=== PATIENT | female | born 1995 | race Caucasian/White ===

== ENCOUNTER 2016-08-23 06:50 | Inpatient (IN) | payer OTHER ==
[2016-08-23] MEDS ORDERED: ELECTROLYTE-148 SOLN 1,000 ML IV SCH ×2 (07:48→09:00)
[2016-08-23 08:07] LABS: BASOPHIL 0.5 % (0-2.0); EOSINOPHIL 1.1 % (0-4.5); MCH 29.9 pg (25.7-33.7); MCHC 33.4 g/dl (32.0-36.0); MEAN CELL VOLUME 89.5 fl (80-96); MEAN PLT VOLUME 9.4 fl (7.5-11.1); NEUTROPHILS 63.3 % (42.8-82.8); PLATELET COUNT 154 K/MM3 (134-434); RDW 13.4 % (11.6-15.6); WHITE BLOOD COUNT 10.2 K/mm3 (4.0-10.0)
[2016-08-23 08:20] LABS: INR 0.9 (0.82-1.09); PROTHROMBIN TIME (PATIENT) 9.9 SEC (9.98-11.88)
[2016-08-23 08:23] LABS: ACTIVATED PTT 24.4 SECONDS (26.9-34.4)
[2016-08-23 08:28] LABS: ANION GAP 9 (8-16); CALCIUM 8.5 mg/dL (8.5-10.1); CO2 24 mmol/L (21-32); CREATININE 0.5 mg/dL (0.55-1.02); GLUCOSE,RANDOM 134 mg/dL (74-106)
[2016-08-23] MEDS ORDERED: FENTANYL/BUPIVACAINE/NS/PF - PCEA - 50 ML DISP.SYRIN EP SCH (09:00)
[2016-08-23] MEDS ORDERED: OXYTOCIN 15 UNITS/ LR 250 ML 250 ML IVPB SCH (09:00)
--- NOTE | 2016-08-23 09:03 | HP ---
Admitting History and Physical - Admission Chief Complaint: labor pains History of Present Illness: 20 y/o at 38 plus admitted for labor pains, now arom and light meconium. fht tracing reactive, gbs neg, hiv neg, rpr neg. 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: No: Alzheimer's, CVA, Dementia, Migraine, Multiple Sclerosis, Peripheral Neuropathy, Parkinson's, Seizure, Syncope, TIA, Vertigo, Other Cardiovascular: No: AFIB, Aneurysm, Aortic Insufficiency, Aortic Stenosis, CAD, CHF, Deep Vein Thrombosis, HTN, Hyperlipdemia, SC, Mitral Insufficiency, Mitral Stenosis, Murmur, Pulmonary Hypertension, Other Pulmonary: No: Asthma, Bronchitis, Cancer, COPD, O2 Dependent, Pneumonia, Previously Intubated, Pulmonary Embolus, Pulmonary Fibrosis, Sleep Apnea, Other Gastrointestinal: No: Ascites, Cancer, Constipation, Crohn's Disease, Diverticulitis, Diverticulosis, Esophageal Varices, Gastritis, GERD, GI Bleed, Hemorrhoids, Hiatal Hernia, Inflamatory Bowel Disease, Irritable Bowel Disease, Pancreatitis, Peptic Ulcer Disease, Ulcerative Colitis, Other Hepatobiliary: No: Cirrhosis, Cholelithiasis, Cholecystitis, Choledocholithiasis , Hepatitis A, Hepatitis B, Hepatitis C, Other Renal/: No: Renal Failure, Renal Inusuff, BPH, Cancer, Hematuria, Hemodialysis , Neurogenic Bladder, Renal Calculi, UTI, Other Reproductive: No: Ectopic , Endometriosis, Fibroids, PID, Polycystic Ovary Syndrome, Postmenopausal, Other ...LMP: 10/12/15 Heme/Onc: No: Anemia, B12 Deficiency, Bleeding Disorder, Cancer, Current Chemotherapy, Current Radiation Therapy, Hemochromatosis, Hypercoaguable State, Myeloproliferative Synd, Sickle Cell Disease, Sickle Cell Trait, Thrombocytopenia, Other Infectious Disease: No: AIDS, C-Diff, Herpes Zoster, HIV, MRSA, STD's, Tuberculosis, VREF, Other Psych: No: Addictions, Anxiety, Bipolar, Depression, Panic, Psychosis, Schizophrenia, Other Musculoskeletal: No: Bursitis, Chronic low back pain, Hemiparesis, Hemiplegia, Osteoarthritis, Paraplegia, Other Rheumatology: No: Fibromyalgia, Gout, Lupus, Rheumatoid Arthritis, Sarcoidosis, Vasculitis, Other ENT: No: Allergic Rhinitis, Sinusitis, Other Dermatology: No: Basal Cell, Cellulitis, Eczema, Melanoma, Psoriasis, Squamous Cell, Other - Past Surgical History Past Surgical History: No: None, AAA Repair, AICD, Amputation, Appendectomy, Arthrosocopy, AV Fistula/Graft, Bariatric Surgery, Breast Biopsy, Bypass, CABG, Carotid Endarterectomy, Cataract Removal, Cholecystectomy, Colectomy, Colonoscopy, Colostomy, Craniotomy, , Cystectomy, Hernia Repair, Hysterectomy, Ileal Conduit, Ileosotomy, Joint Replacement, Kidney Transplant, Laminectomy, Liver Transplant, Mastectomy, Nephrectomy, Oopherectomy, Orchiectomy, Permanent Pacemaker, Prostatectomy, Splenectomy, Stent, Thoracotomy , TURP, Tonsillectomy, Tubal Ligation, Upper Endoscopy, Valve Replacement, Vasectomy, Vein Stripping/Ligation - Advance Directives Advance Directives: No: Living Will, Health Care Proxy, DNR, Organ Donor, Tissue Donor, MOLST - Smoking History Smoking history: Never smoked Have you smoked in the past 12 months: No - Alcohol/Substance Use Hx Alcohol Use: No History of Substance Use: denies: None, Cocaine, Heroin, Marijuana, Prescription , Tranquilizers - Social History Usual Living Arrangement: No: Alone, With Spouse, With Parent, With Significant Other, With Child, Assisted Living, [facility], Other Home Medications - Allergies Allergies/Adverse Reactions: Allergies Allergy/AdvReac Type Severity Reaction Status Date / Time No Known Allergies Allergy Verified 04/29/16 16:21 - Home Medications Home Medications: Ambulatory Orders Vit/Iron Fumarate/FA [ Tablet] 1 tab PO DAILY 04/29/16 Review of Systems - Review of Systems Constitutional: reports: No Symptoms Eyes: reports: No Symptoms HENT: reports: No Symptoms Neck: reports: No Symptoms Cardiovascular: reports: No Symptoms Respiratory: reports: No Symptoms Gastrointestinal: reports: No Symptoms Genitourinary: reports: No Symptoms Breasts: reports: No Symptoms Reported Musculoskeletal: reports: No Symptoms Integumentary: reports: No Symptoms Neurological: reports: No Symptoms Endocrine: reports: No Symptoms Hematology/Lymphatic: reports: No Symptoms Physical Examination Vital Signs: Vital Signs Temperature 97.8 F 08/23/16 08:00 Pulse Rate 94 H 08/23/16 08:00 Respiratory Rate 19 08/23/16 08:00 Blood Pressure 120/75 08/23/16 08:00 O2 Sat by Pulse Oximetry (%) Constitutional: Yes: Well Nourished Eyes: Yes: WNL HENT: Yes: WNL Neck: Yes: WNL Cardiovascular: Yes: WNL Respiratory: Yes: WNL Gastrointestinal: Yes: WNL ...Rectal Exam: Yes: WNL Renal/: Yes: WNL Breast(s): Yes: WNL Musculoskeletal: Yes: WNL Labs: CBC, BMP 08/23/16 07:50 08/23/16 07:50 Assessment/Plan as above admit labs expect
[2016-08-23 09:26] VITALS: BMI 25.8
--- NOTE | 2016-08-23 11:02 | PN ---
Ante-Partal Exam - Subjective Vital Signs: Vital Signs Temperature 97.8 F 08/23/16 10:00 Pulse Rate 74 08/23/16 10:15 Respiratory Rate 18 08/23/16 10:15 Blood Pressure 100/59 08/23/16 10:15 O2 Sat by Pulse Oximetry (%) 96 08/23/16 10:15 - Exam during Labor Heart Rate: 150 Category: I Monitor Accelerations: Present Monitor Decelerations: None Exam: Vaginal Dilatation (cm): 8 Effacement (%): 100 Amniotic Membrane Status: Ruptured Nitrazine Test: Positive Amniotic Fluid: Meconium Stained Meconium Staining: Light Presentation: Vertex Station: 0 - Assessment/Plan Assessment/Plan: as above contine care expect nvsd
--- NOTE | 2016-08-23 11:59 | PN ---
Ante-Partal Exam - Subjective Vital Signs: Vital Signs Temperature 98.1 F 08/23/16 11:00 Pulse Rate 69 08/23/16 10:45 Respiratory Rate 18 08/23/16 10:45 Blood Pressure 115/70 08/23/16 10:45 O2 Sat by Pulse Oximetry (%) 97 08/23/16 10:45 - Contractions Contractions: Yes Regularity: Regular Intensity: Mild/Mod Monitor Mode: External - Exam during Labor Heart Rate: 150 Variability: Minimal Category: I Monitor Accelerations: Present Monitor Decelerations: None Exam: Vaginal Dilatation (cm): 10 Effacement (%): 100 Amniotic Membrane Status: Ruptured Nitrazine Test: Positive Amniotic Fluid: Meconium Stained Meconium Staining: Light Presentation: Vertex Station: 0 - Assessment/Plan Assessment/Plan: as above continue care expect
--- NOTE | 2016-08-23 13:40 | PN ---
Ante-Partal Exam - Subjective Vital Signs: Vital Signs Temperature 98.4 F 08/23/16 13:00 Pulse Rate 76 08/23/16 11:45 Respiratory Rate 18 08/23/16 11:45 Blood Pressure 112/65 08/23/16 11:45 O2 Sat by Pulse Oximetry (%) 96 08/23/16 11:45 - Contractions Contractions: Yes Regularity: Regular Intensity: Moderate Monitor Mode: External - Exam during Labor Heart Rate: 150 Category: I Monitor Accelerations: Present Monitor Decelerations: None Exam: Vaginal Dilatation (cm): 10 Effacement (%): 100 Amniotic Membrane Status: Ruptured Nitrazine Test: Positive Amniotic Fluid: Clear Presentation: Vertex Station: 0 - Assessment/Plan Assessment/Plan: as above expect
[2016-08-23] MEDS ORDERED: WITCH HAZEL 50% (TUCKS) 40 PAD/JAR PAD TP PRN (14:54)
[2016-08-23] MEDS ORDERED: BENZOCAINE 28 GM HEMORRHOIDAL OINTMENT TP PRN (14:54)
[2016-08-23] MEDS ORDERED: METHYLERGONOVINE MALEATE 0.2 MG/1 ML AMP IM PRN (14:54)
[2016-08-23] MEDS ORDERED: BENZOCAINE 20% 57 GM BOTTLE TP PRN (14:54)
[2016-08-23] MEDS ORDERED: BISACODYL 10 MG SUPP.RECT RC PRN (14:54)
--- NOTE | 2016-08-23 14:57 | PN ---
Delivery - Delivery Type of Anesthesia: Local, Epidural Episiotomy/Laceration: Midline EBL (cc): 300 Delivery, Single - Feeding Plan Initial Plan: Elected not to breastfeed exclusively throughout hospitalization
[2016-08-23] MEDS ORDERED: OXYTOCIN 20 UNITS in 0.9% NS 1,000 ML IV SCH (15:00)
[2016-08-23] MEDS ORDERED: OXYCODONE/APAP 5/325MG COMBO TABLET PO ONE (15:00)
[2016-08-23] MEDS ORDERED: oxyCODONE HCL 5 MG TABLET PO ONE (15:15)
[2016-08-23] MEDS: IBUPROFEN 600 MG TABLET (FP) PO PRN ×2 (15:15→23:00)
[2016-08-23] MEDS ORDERED: ACETAMINOPHEN 325 MG TABLET (FP) PO ONE (15:15)
[2016-08-23] MEDS: ACETAMINOPHEN 325 MG TABLET (FP) PO PRN (22:59)
[2016-08-24 09:29] LABS: BASOPHIL 0.3 % (0-2.0); EOSINOPHIL 0.6 % (0-4.5); MCH 29.7 pg (25.7-33.7); MEAN PLT VOLUME 10.1 fl (7.5-11.1); NEUTROPHILS 76.3 % (42.8-82.8); PLATELET COUNT 160 K/MM3 (134-434); RDW 13.8 % (11.6-15.6); WHITE BLOOD COUNT 16.7 K/mm3 (4.0-10.0)
[2016-08-24] MEDS: ACETAMINOPHEN 325 MG TABLET (FP) PO PRN ×2 (10:20→21:59)
[2016-08-24] MEDS: IBUPROFEN 600 MG TABLET (FP) PO PRN ×2 (10:20→22:00)
[2016-08-24] MEDS ORDERED: SENNOSIDES/DOCUSATE COMBO (SENNA PLUS) TABLET (UD) PO PRN (22:00)
--- NOTE | 2016-08-24 22:54 | PN ---
Post Progress Note Post Day: 1 Type of Delivery: Vital Signs: Vital Signs Temperature 98.3 F 08/24/16 22:00 Pulse Rate 98 H 08/24/16 22:00 Respiratory Rate 20 08/24/16 22:00 Blood Pressure 118/60 08/24/16 22:00 O2 Sat by Pulse Oximetry (%) 96 08/23/16 15:15 Breast Exam: Yes: Soft Uterus: Yes: Fundus Firm Abdomen/GI: Yes: Abdomen soft Lochia: Yes: Rubra Lochia, amount: Small Extremities: Yes: Calves non-tender Perineum: Yes: Intact Activity: Ambulating - Labs Labs: CBC WBC 16.7 K/mm3 (4.0-10.0) H D 08/24/16 07:35 RBC 3.64 M/mm3 (3.60-5.2) 08/24/16 07:35 Hgb 10.8 GM/dL (10.7-15.3) 08/24/16 07:35 Hct 32.8 % (32.4-45.2) 08/24/16 07:35 MCV 90.0 fl (80-96) 08/24/16 07:35 MCHC 33.0 g/dl (32.0-36.0) 08/24/16 07:35 RDW 13.8 % (11.6-15.6) 08/24/16 07:35 Plt Count 160 K/MM3 (134-434) 08/24/16 07:35 MPV 10.1 fl (7.5-11.1) 08/24/16 07:35 Neutrophils % 76.3 % (42.8-82.8) D 08/24/16 07:35 Lymphocytes % 17.8 % (8-40) D 08/24/16 07:35 Monocytes % 5.0 % (3.8-10.2) 08/24/16 07:35 Eosinophils % 0.6 % (0-4.5) 08/24/16 07:35 Basophils % 0.3 % (0-2.0) 08/24/16 07:35 Assessment/Plan as above oob reg diet
[2016-08-25 09:28] VITALS: BP 114/61; PULSE 93; TEMP 98.8
== END 2016-08-25 13:00 | disposition home or self-care (01) | DRG 560 ==
LOC: JDEL 06:50 → JLDR 07:40 → J3W 16:40
PROVIDERS: ADMIT Obstetrics & Gynecology; ATTEND Obstetrics & Gynecology
PROC: 10E0XZZ Delivery of Products of Conception, External Approach (ICD-10-PCS; principal; 2016-08-23)
PROC: 0W8NXZZ Division of Female Perineum, External Approach (ICD-10-PCS; 2016-08-23)
DX: O48.0 Post-term pregnancy (principal); Z3A.40 40 weeks gestation of pregnancy; Z37.0 Single live birth
CPT/HCPCS: 36415; 59409; 80048; 85025; 85610; 85730; 86593; 86850; 86900; 86901

== ENCOUNTER 2017-07-12 17:01 | Emergency (ER) | payer OTHER ==
[2017-07-12 17:08] VITALS: BP 122/62; PULSE 118; TEMP 99.3; BMI 24.2
[2017-07-12] MEDS ORDERED: ALBUTEROL SO4 2.5/IPRATROPIUM 0.5 INH SOL 3 ML VIAL.NEB. NEB ONE ×3 (17:35→18:08)
[2017-07-12] MEDS ORDERED: IBUPROFEN 400 MG TABLET (FP) PO ONE ×2 (17:35→17:37)
--- NOTE | 2017-07-12 17:35 | PDOC ---
History of Present Illness - General Chief Complaint: Respiratory Stated Complaint: CHEST PAIN Time Seen by Provider: 07/12/17 17:25 History Source: Patient Exam Limitations: No Limitations - History of Present Illness Initial Comments: 07/12/17 17:37 came for evaluation of chest pain that started this AM . States had started coughing last PM with some yellow phlegm Timing/Duration: reports: just prior to arrival Severity: reports: mild Associated Symptoms: reports: denies symptoms, cough, muscle aches, nasal congestion. denies: facial pain Past History - Travel Traveled outside of the country in the last 30 days: No Close contact w/someone who was outside of country & ill: No - Past Medical History Allergies/Adverse Reactions: Allergies Allergy/AdvReac Type Severity Reaction Status Date / Time No Known Allergies Allergy Verified 07/12/17 17:03 Home Medications: Ambulatory Orders Albuterol 0.083% Nebulizer Sivan [Ventolin 0.083% Nebulizer Soln -] 1 neb NEB Q4H PRN #30 vial 07/12/17 Sulfamethoxazole/Trimethoprim [Bactrim *Ds*] 1 each PO BID #14 tablet 07/12/17 predniSONE [Deltasone -] 20 mg PO BID #8 tablet 07/12/17 Anemia: Yes Asthma: No Cancer: No Cardiac Disorders: No COPD: No Diabetes: No HTN: No Seizures: No Thyroid Disease: No - Surgical History Abdominal Surgery: No Cardiac Surgery: No Cholecystectomy: No - Reproductive History (#): 1 Para: 1 Cervical CA: No Dysfunctional Uterine Bleeding: No Ectopic : No Endometrial CA: No Polycystic Ovaries: No Tubal Ligation: No Spontaneous : 0 Uterine Fibroids: No - Immunization History Immunization Up to Date: Yes - Suicide/Smoking/Psychosocial Hx Smoking History: Never smoked Have you smoked in the past 12 months: No Hx Alcohol Use: No Drug/Substance Use Hx: No Substance Use Type: None Hx Substance Use Treatment: No Review of Systems - Review of Systems Able to Perform ROS?: Yes Is the patient limited [place] proficient: Yes Constitutional: Yes: Symptoms Reported, See HPI, Malaise. No: Fever, Loss of Appetite HEENTM: Yes: See HPI. No: Symptoms Reported, Nose Congestion Respiratory: Yes: Symptoms reported, See HPI, Cough (with pleuritic chestpain ) . No: Wheezing Integumentary: Yes: Symptoms Reported Neurological: Yes: Symptoms reported All Other Systems: Reviewed and Negative *Physical Exam - Vital Signs Last Vital Signs Temp Pulse Resp BP Pulse Ox 99.3 F 118 H 17 122/62 100 07/12/17 17:04 07/12/17 17:04 07/12/17 17:04 07/12/17 17:04 07/12/17 17:04 - Physical Exam General Appearance: Yes: Nourished, Appropriately Dressed. No: Apparent Distress, Mild Distress HEENT: positive: CJ, Normal ENT Inspection, Normal Voice, TMs Normal, Pharynx Normal Neck: positive: Supple. negative: Tender, Lymphadenopathy (R), Lymphadenopathy (L) Respiratory/Chest: positive: Chest Tender, Lungs Clear, Normal Breath Sounds, Wheezing (diminished breath sounds bilaterally, states feels tight and difficult to take deep inspiratory effort due to pain.) Gastrointestinal/Abdominal: positive: Soft Extremity: positive: Normal Capillary Refill, Normal Inspection, Normal Range of Motion Integumentary: positive: Normal Color Neurologic: positive: esthetician/spa coordinator II-XII NML intact, Fully Oriented, Alert, Normal Mood/ Affect, Normal Response, Motor Strength 5/5 Heart Score/ECG Review - ECG Intrepretation Rhythm: Regular Rhythm (tachycardic) - ECG Impressions Normal ECG: Yes Non-specific ST Elevation: No Ischemic Changes: No Progress Note - Progress Note Progress Note: Upper respiratory infection, will treat with NSAIDS, Albuterol Nebs and prednisone *DC/Admit/Observation/Transfer Diagnosis at time of Disposition: Viral upper respiratory illness Allergic rhinitis Qualifiers: Allergic rhinitis trigger: pollen Allergic rhinitis seasonality: seasonal Qualified Code(s): J30.1 - Allergic rhinitis due to pollen - Discharge Dispostion Disposition: HOME Condition at time of disposition: Stable Decision to Admit order: No - Referrals - Patient Instructions Printed Discharge Instructions: DI for Viral Upper Respiratory Infection -- Adult Additional Instructions: Rest, drink lots of fluids: Teas, water, soups, Pedialyte Saltwater gargles Steamy showers/seem to face break up mucus Avoid contact with others until fevers and cough resolved Lots of handwashing and good hygiene Continue [id number] medications for symptomatic relief Tylenol or Motrin for fever and pain Continue albuterol nebulizers every 4-6 hours for the next 2 days then as needed for continued cough Prednisone as directed until completed Followup with private physician in one to 2 days Return to emergency department / pediatric hospital for worsened symptoms, fevers, dehydration - Post Discharge Activity Forms/Work/School Notes: Back to Work
[2017-07-12] MEDS ORDERED: predniSONE 20 MG TABLET (UD) PO ONE (18:10)
[2017-07-12] MEDS ORDERED: predniSONE 20 MG TABLET (UD) ONE (18:13)
--- NOTE | 2017-07-13 10:57 | EKG ---
Test Reason : Blood Pressure : / mmHG Vent. Rate : 115 BPM Atrial Rate : 115 BPM P-R Int : 154 ms QRS Dur : 076 ms QT Int : 324 ms P-R-T Axes : 070 057 039 degrees QTc Int : 448 ms SINUS TACHYCARDIA POSSIBLE LEFT ATRIAL ENLARGEMENT BORDERLINE ECG NO PREVIOUS ECGS AVAILABLE Confirmed by LESLIE STILES MD ([id number]) on 07/13/2017 10:57:37 AM Referred By: Confirmed By:LESLIE STILES MD
== END 2017-07-12 18:23 | disposition home or self-care (01) ==
LOC: JERFT 17:01
PROC: 3E0F7GC Introduction of Other Therapeutic Substance into Respiratory Tract, Via Natural or Artificial Opening (ICD-10-PCS; principal; 2017-07-12)
DX: J06.9 Acute upper respiratory infection, unspecified (principal); B97.89 Other viral agents as the cause of diseases classified elsewhere; J30.1 Allergic rhinitis due to pollen; Z86.2 Personal history of diseases of the blood and blood-forming organs and certain disorders involving the immune mechanism
CPT/HCPCS: 93005; 93010; 94640; 99281-25; J7620

== ENCOUNTER 2020-01-10 03:00 | Inpatient (IN) | payer OTHER ==
[2020-01-10] MEDS ORDERED: ELECTROLYTE-148 SOLN 500 ML IV ONE (04:00)
[2020-01-10 04:29] LABS: BASO % 0.5 % (0-2.0); EOS % 1.2 % (0-4.5); HEMATOCRIT 29.3 % (32.4-45.2); HEMOGLOBIN 9.6 GM/dL (10.7-15.3); LYMPH % 27.6 % (8-40); MCH 28.4 pg (25.7-33.7); MCHC 32.6 g/dl (32.0-36.0); MEAN PLT VOLUME 9.8 fl (7.5-11.1); MONO % 8.6 % (3.8-10.2); NEUT % 62.1 % (42.8-82.8); PLATELET COUNT 200 K/MM3 (134-434); RBC 3.37 M/mm3 (3.60-5.2); RDW 14.2 % (11.6-15.6); WHITE BLOOD COUNT 9.4 K/mm3 (4.0-10.0)
[2020-01-10 04:41] LABS: INR 0.92 (0.83-1.09); PROTHROMBIN TIME (PATIENT) 11.4 SEC (9.7-13.0)
[2020-01-10] MEDS ORDERED: FENTANYL/BUPIVACAINE/NS/PF - PCEA - 50 ML DISP.SYRIN EP ONE (04:43)
[2020-01-10 04:44] LABS: ACTIVATED PTT 24.5 SECONDS (25.2-36.5)
[2020-01-10] MEDS ORDERED: PCA PUMP NR ONE ×2 (04:45→09:50)
[2020-01-10 04:49] LABS: POTASSIUM 4.1 mmol/L (3.5-5.1)
[2020-01-10 04:50] LABS: CALCIUM 8.8 mg/dL (8.5-10.1)
[2020-01-10 04:51] LABS: BLOOD UREA NITROGEN 5.2 mg/dL (7-18)
[2020-01-10] MEDS ORDERED: OXYTOCIN 20 UNITS in 0.9% NS 20 UNIT/1,000 ML INFUS.BAG IV ONE ×2 (04:51→15:06)
[2020-01-10 04:55] LABS: CREATININE 0.4 mg/dL (0.55-1.3)
[2020-01-10] MEDS ORDERED: ELECTROLYTE-148 SOLN 1,000 ML IV SCH (05:00)
[2020-01-10 05:08] VITALS: BMI 25.0
[2020-01-10 05:42] LABS: HIV INTERPRETATION NEGATIVE (NEGATIVE)
[2020-01-10] MEDS ORDERED: NALOXONE HCL 0.4 MG/ML VIAL IVPUSH PRN (06:35)
[2020-01-10] MEDS ORDERED: FENTANYL/BUPIVACAINE/NS/PF - PCEA - 50 ML DISP.SYRIN EP SCH (06:45)
[2020-01-10 08:55] LABS: CORD HCO3 22.1 mmHg (20-29); CORD PCO2 89.3 mmHg (30-78); CORD pH 7.012 (7.14-7.44)
[2020-01-10 08:55] LABS: CORD HCO3 19.1 mmHg (20-29); CORD PCO2 72.5 mmHg (30-78); CORD pH 7.039 (7.14-7.44)
[2020-01-10] MEDS ORDERED: WITCH HAZEL 50% (TUCKS) 40 PAD/JAR PAD TP PRN (09:08)
[2020-01-10] MEDS ORDERED: BISACODYL 10 MG SUPP.RECT RC PRN (09:08)
[2020-01-10] MEDS ORDERED: BENZOCAINE 28 GM HEMORRHOIDAL OINTMENT TP PRN (09:08)
[2020-01-10] MEDS ORDERED: BENZOCAINE 20% 57 GM BOTTLE TP PRN (09:08)
[2020-01-10] MEDS ORDERED: MISOPROSTOL 200 MCG TABLET PV ONE (09:10)
[2020-01-10] MEDS ORDERED: OXYTOCIN 20 UNITS in 0.9% NS 20 UNIT/1,000 ML INFUS.BAG IV SCH (09:15)
[2020-01-10] MEDS ORDERED: IBUPROFEN 600 MG TABLET (FP) PO ONE (11:43)
[2020-01-10] MEDS ORDERED: ACETAMINOPHEN 325 MG TABLET (FP) ONE (11:43)
[2020-01-10] MEDS: ACETAMINOPHEN 325 MG TABLET (FP) PO PRN (11:50)
[2020-01-10] MEDS: IBUPROFEN 600 MG TABLET (FP) PO PRN (11:50)
[2020-01-10] MEDS: FERROUS SO4 325 MG TABLET (FP) PO SCH (19:54)
[2020-01-11 07:38] LABS: BASO % 0.7 % (0-2.0); EOS % 1.7 % (0-4.5); LYMPH % 17.7 % (8-40); MCH 27.7 pg (25.7-33.7); MCHC 32.1 g/dl (32.0-36.0); MEAN CELL VOLUME 86.3 fl (80-96); MEAN PLT VOLUME 9.7 fl (7.5-11.1); MONO % 5.7 % (3.8-10.2); NEUT % 74.2 % (42.8-82.8); PLATELET COUNT 195 K/MM3 (134-434); RBC 2.89 M/mm3 (3.60-5.2); RDW 14.3 % (11.6-15.6); WHITE BLOOD COUNT 14.6 K/mm3 (4.0-10.0)
[2020-01-11] MEDS: FERROUS SO4 325 MG TABLET (FP) PO SCH (09:02)
[2020-01-11] MEDS: IBUPROFEN 600 MG TABLET (FP) PO PRN (19:38)
[2020-01-11] MEDS: ACETAMINOPHEN 325 MG TABLET (FP) PO PRN (19:39)
[2020-01-11] MEDS ORDERED: SENNOSIDES/DOCUSATE COMBO (SENNA PLUS) TABLET (UD) PO PRN (22:00)
[2020-01-12] MEDS: FERROUS SO4 325 MG TABLET (FP) PO SCH (10:06)
[2020-01-12 13:02] VITALS: BP 97/57; PULSE 98; TEMP 99.1
== END 2020-01-12 12:45 | disposition home or self-care (01) | DRG 560 ==
LOC: JDEL 03:00 → JLDR 04:25 → J3W 15:23
PROVIDERS: ADMIT Student in an Organized Health Care Education/Training Program; ATTEND Student in an Organized Health Care Education/Training Program
PROC: 10D07Z6 Extraction of Products of Conception, Vacuum, Via Natural or Artificial Opening (ICD-10-PCS; principal; 2020-01-10)
PROC: 0KQM0ZZ Repair Perineum Muscle, Open Approach (ICD-10-PCS; 2020-01-10)
DX: O77.8 Labor and delivery complicated by other evidence of fetal stress (principal); O70.1 Second degree perineal laceration during delivery; O69.81X0 Labor and delivery complicated by cord around neck, without compression, not applicable or unspecified; O75.81 Maternal exhaustion complicating labor and delivery; Z3A.39 39 weeks gestation of pregnancy; Z37.0 Single live birth
CPT/HCPCS: 36415; 36600; 59409; 80048; 82803; 85025; 85610; 85730; 86780; 86850; 86900; 86901; 87389; C9803; U0003

== ENCOUNTER 2020-10-13 00:46 | Inpatient (IN) | payer OTHER ==
[2020-10-13] MEDS ORDERED: SODIUM CHLORIDE 0.9% 500 ML INFUS.BAG IV ONE ×3 (02:09→03:38)
[2020-10-13] MEDS ORDERED: ACETAMINOPHEN 1000 MG/100 ML VIAL (NON FORMULARY) IVPB ONE (02:09)
[2020-10-13] MEDS ORDERED: FAMOTIDINE 20 MG/50 ML IVPB 20 MG/50 ML MG IVPB ONE ×2 (02:09→02:25)
[2020-10-13] MEDS ORDERED: ONDANSETRON 4 MG/2 ML VIAL IVPUSH ONE (02:09)
[2020-10-13] MEDS ORDERED: ACETAMINOPHEN INJECTION 100 ML IVPB ONE (02:25)
[2020-10-13] MEDS ORDERED: ONDANSETRON 4 MG/2 ML VIAL ONE (02:25)
[2020-10-13 02:37] LABS: BASO % 0.1 % (0-2.0); HEMATOCRIT 38.1 % (32.4-45.2); HEMOGLOBIN 12.9 GM/dL (10.7-15.3); LYMPH % 5.9 % (8-40); MCH 31.4 pg (25.7-33.7); MEAN CELL VOLUME 92.6 fl (80-96); MEAN PLT VOLUME 8.6 fl (7.5-11.1); MONO % 5.6 % (3.8-10.2); NEUT % 88.4 % (42.8-82.8); PLATELET COUNT 239 10^3/uL (134-434); RBC 4.11 M/mm3 (3.60-5.2); RDW 13.1 % (11.6-15.6); WHITE BLOOD COUNT 13.6 K/mm3 (4.0-10.0)
[2020-10-13 02:51] LABS: CALCIUM 8.7 mg/dL (8.5-10.1)
[2020-10-13 02:52] LABS: ALBUMIN 3.7 g/dl (3.4-5.0); BLOOD UREA NITROGEN 8.4 mg/dL (7-18)
[2020-10-13 02:55] LABS: CREATININE 0.5 mg/dL (0.55-1.3)
[2020-10-13 02:57] LABS: TOT PROT 7.5 g/dl (6.4-8.2)
[2020-10-13 03:30] LABS: EPI CELLS 21 /uL (0-25.1); HYALINE CASTS 4 /uL (0-3.1); PH,URINE 6.5 (5.0-8.0); URINE APPEARANCE CLEAR; URINE BACTERIA 214 /uL (0-1359); URINE BILIRUBIN NEGATIVE (NEGATIVE); URINE COLOR YELLOW; URINE GLUCOSE (UA) NEGATIVE (NEGATIVE); URINE KETONE 3+ (NEGATIVE); URINE LEUK ESTERASE TRACE (NEGATIVE); URINE NITRITE NEGATIVE (NEGATIVE); URINE PROTEIN NEGATIVE (NEGATIVE); URINE RBC 6 /uL (0-23.9); URINE WBC 34 /uL (0-25.8)
[2020-10-13 03:47] LABS: HCG,QUALITATIVE URINE Negative
[2020-10-13] MEDS ORDERED: morphine CARPU-JECT 2 MG/1 ML DISP.SYRIN IVPUSH ONE (03:54)
[2020-10-13] MEDS ORDERED: MORPHINE SULFATE 2 MG/ML VIAL ONE (04:18)
[2020-10-13] MEDS ORDERED: PIPERACILLIN/TAZOB 3.375 GM 3.375 GM in DEXTROSE 5%-WATER - 50 ML IVPB ONE (05:35)
[2020-10-13] MEDS ORDERED: PIPERACILLIN/TAZOB 3.375 GM 3.375 GM/50 ML BAG IVPB ONE (05:48)
[2020-10-13] MEDS ORDERED: ROCURONIUM BROMIDE 50 MG/5 ML SYRINGE ONE (11:21)
[2020-10-13] MEDS ORDERED: PROPOFOL 20 ML ONE ×2 (11:21)
[2020-10-13] MEDS ORDERED: MIDAZOLAM HCL 2 MG/2 ML SINGLE DOSE VIAL ONE (11:21)
[2020-10-13] MEDS ORDERED: SUCCINYLCHOLINE CHLORIDE 200 MG/10 ML SYRINGE ONE (11:21)
[2020-10-13] MEDS ORDERED: DEXAMETHASONE SOD PHOSPHATE 4 MG/1 ML VIAL ONE (12:08)
[2020-10-13] MEDS ORDERED: KETOROLAC TROMETHAMINE 30 MG/1 ML VIAL ONE (12:36)
[2020-10-13] MEDS ORDERED: BUPIVACAINE HCL/PF 0.5% (5MG/ML) 10 ML VIAL ONE (12:38)
[2020-10-13] MEDS ORDERED: IBUPROFEN 600 MG TABLET (FP) PO PRN (13:03)
[2020-10-13] MEDS ORDERED: ONDANSETRON 4 MG/2 ML VIAL IVPUSH PRN (13:11)
[2020-10-13] MEDS ORDERED: PROMETHAZINE HCL 25 MG/1 ML VIAL ONE (13:24)
[2020-10-13] MEDS ORDERED: PROMETHAZINE HCL 25 MG/1 ML VIAL IVPUSH PRN (15:10)
[2020-10-13 16:30] VITALS: BMI 26.9
[2020-10-13] MEDS: LACTATED RINGERS SOLUTION 1,000 ML IV SCH ×2 (16:49→21:50)
[2020-10-14] MEDS: LACTATED RINGERS SOLUTION 1,000 ML IV SCH (04:08)
[2020-10-14 08:36] LABS: HEMOGLOBIN 11.4 GM/dL (10.7-15.3); MCH 32.3 pg (25.7-33.7); MCHC 34.4 g/dl (32.0-36.0); MEAN CELL VOLUME 93.8 fl (80-96); MEAN PLT VOLUME 9.1 fl (7.5-11.1); PLATELET COUNT 212 10^3/uL (134-434); RBC 3.52 M/mm3 (3.60-5.2); RDW 12.6 % (11.6-15.6); WHITE BLOOD COUNT 8.6 K/mm3 (4.0-10.0)
[2020-10-14 08:59] LABS: CALCIUM 8.2 mg/dL (8.5-10.1)
[2020-10-14 09:00] LABS: BLOOD UREA NITROGEN 7.9 mg/dL (7-18)
[2020-10-14 09:07] LABS: CREATININE 0.5 mg/dL (0.55-1.3)
[2020-10-14 11:41] VITALS: BP 108/53; PULSE 77; TEMP 98
== END 2020-10-14 16:40 | disposition home or self-care (01) | DRG 225 ==
LOC: JER 00:46 → JERBED 05:59 → J8W 15:45
PROVIDERS: ADMIT Internal Medicine; ATTEND Nurse Practitioner Acute Care
PROC: 0DTJ4ZZ Resection of Appendix, Percutaneous Endoscopic Approach (ICD-10-PCS; principal; 2020-10-13 10:44)
DX: K35.80 Unspecified acute appendicitis (principal)
CPT/HCPCS: 36415; 74177-TC; 76830-TC; 80048; 80053; 81003; 83690; 84443; 84703; 85025; 85027; 87070; 87075; 87077; 87086; 87205; 88304-TC; 93005; 93010; 94760; 99285-25; C9803; J0131; Q9967; U0003; U0005